=== PATIENT | male | born 1985 | race Caucasian/White ===

== ENCOUNTER 2018-11-22 09:17 | Emergency (ER) | payer OTHER ==
[~2018-11-22] VITALS: Ht 180.3 cm; Wt 136.1 kg
[2018-11-22] MEDS ORDERED: ANUSOL-HC25 MG RECTAL (09:46)
[2018-11-22 09:50] VITALS: BP 144/90
== END 2018-11-22 09:50 | disposition home or self-care (01) ==
LOC: M.ERS 09:17
DX: K64.4 Residual hemorrhoidal skin tags (principal)